=== PATIENT | female | born 1950 | race Two or more races ===

== ENCOUNTER → 2017-01-10 | Outpatient (CLI) | payer OTHER ==
[2014-04-26 12:45] VITALS: BP 133/80
[~2017-01-10] MED LIST: CELE100C PO; GABA-585 PO
--- NOTE | 2017-01-10 15:32 | KCIC ---
PROCEDURE Complete abdomen ultrasound study. HISTORY Right lower quadrant abdominal pain. Hernia repair. COMPARISON None available. FINDINGS The pancreas and abdominal aorta and IVC are poorly visualized due to overlying bowel gas. What is visualized of the pancreas is not abnormally enlarged. If pancreatic pathology is suspected clinically, then an abdomen CT with IV contrast may be needed for further evaluation. No focal aneurysmal dilatation of the mid or distal abdominal aorta is seen however. The liver measures 16.3 centimeters in length. No focal hepatic mass is seen. The gallbladder is surgically absent. The extrahepatic bile duct measures 9 millimeters in caliber which is dilated. The length of the right kidney is 11.4 centimeters and the length of the left kidney is 11.0 centimeters. No hydronephrosis or renal mass or perinephric fluid collection is seen on either side. The spleen measures 11.5 centimeters in length. No ascites is evident. Sonography of the midline of the abdomen and the right lower quadrant of the abdomen was performed. This area is partially obscured due to overlying bowel gas. No obvious free fluid is evident. IMPRESSION The midline structures are poorly visualized due to overlying bowel gas. No other significant abnormality. Electronically signed by: Enrike Johnson MD (Jan 10, 2017 15:30:27)
--- NOTE | 2017-01-10 15:34 | KCIC ---
PROCEDURE Transabdominal sonography of the pelvis. HISTORY Total hysterectomy with bilateral oophorectomy. Right sided pelvic pain. FINDINGS The uterus and ovaries are surgically absent. The vaginal cuff is not well visualized due to overlying bowel gas. No free fluid or cystic lesion is evident within the pelvis. The urinary bladder is mildly distended. IMPRESSION Unremarkable postoperative pelvic study. Electronically signed by: Enrike Johnson MD (Jan 10, 2017 15:32:30)
== END | disposition home or self-care (01) ==
LOC: KCIC US 07:39
PROVIDERS: ATTEND Family Medicine
DX: R10.2 Pelvic and perineal pain (principal); R10.31 Right lower quadrant pain
CPT/HCPCS: 76700; 76857